=== PATIENT | female | born 1955 | race Two or more races ===

== ENCOUNTER → 2018-06-24 | Outpatient (CLI) | payer OTHER ==
[~2018-06-24] MED LIST: ATACAND4 MG PO; ATENOLOL25 MG PO; GLUCOSAMINE & C1 CAP PO; GLYCOTROL CAPS1 EACH PO; LIPITOR20 MG PO; MEDROL4 MG PO; METAMUCIL1 PKT PO; ORPH100T PO; PREVACID30 MG PO; SYNTHROID75 MCG PO; ULTRAM50 MG PO; VITAMIN D-32000 UNIT PO; [UNRECOGNIZED DRUG - OTHER]; [UNRECOGNIZED DRUG - OTHER]
== END | disposition home or self-care (01) ==
LOC: NUCLEAR 10:00
DX: M81.0 Age-related osteoporosis without current pathological fracture (principal); M15.0 Primary generalized (osteo)arthritis

== ENCOUNTER 2019-02-03 07:22 | Outpatient (CLI) | payer OTHER | END 2019-02-03 08:34 | disposition home or self-care (01) | LOC: NUCLEAR 07:22 | DX: I20.8 Other forms of angina pectoris (principal); I10 Essential (primary) hypertension | CPT/HCPCS: 78452; 93017; A9500; J0153 ==

== ENCOUNTER → 2019-04-14 | Outpatient (CLI) | payer OTHER | END | disposition home or self-care (01) | LOC: NUCLEAR 08:00 | DX: I87.2 Venous insufficiency (chronic) (peripheral) (principal) ==